=== PATIENT | male | born 1945 | race Caucasian/White ===

== ENCOUNTER 2016-06-25 15:21 | Emergency (ER) | payer OTHER, MEDICARE ==
[~2016-06-25] VITALS: Ht 172.7 cm; Wt 73.2 kg
[~2016-06-25 15:21] MED LIST: NXMUNK
[2016-06-25 15:40] VITALS: TEMP 36.7; Ht 172.7 cm; Wt 73.2 kg
[2016-06-25] MEDS ORDERED: ESOM20CA PO (15:52)
[2016-06-25] MEDS ORDERED: XYLOCAINE 1%/SOD BICARB 20 ML VIAL INFIL ONE (16:00)
[2016-06-25] MEDS ORDERED: DIPHTHERIA/TETANUS/PERTUSSIS 0.5 ML SYR/VIAL IM. ONE (16:15)
[2016-06-25 16:46] VITALS: BP 130/80; PULSE 74; O2SAT 95
--- NOTE | 2016-06-25 17:06 | EMERGENCY ROOM VISIT NOTE ---
ED Visit Note First contact with patient: 15:52 Chief Complaint: I cut my left middle finger within the life when I was cutting a role. History of Present Illness: Mr. Barrett is a 70-year-old white male who ambulates into the ED complaining of a left middle finger laceration. Patient reports less than an hour before he arrived in the ED he was cutting roll with a sharp knife and accidentally cut his finger. He attempted to control bleeding prior to arrival at the hospital but did not wash his wound. Associated with his laceration he has a stinging sensation in the area of the wound. He rates his discomfort 2/10. His pain is nonradiating. His pain worsens with palpation. He has not identified any alleviating factors related to the pain. He has not taken a medication for pain prior to arrival at the hospital. He denies any associated other hand pain, middle finger weakness/ numbness/tingling. Review of Systems: As noted above in history of present illness. Past Medical History: Status post carotid surgery. Current Medications: Nexium. Allergies to Medications: Patient denies. Social History: Patient is currently employed; he feels safe in his home environment; he denies tobacco use; he admits to social alcohol use. Tetanus Immunization Status: Patient reports greater than 10 years. Physical Examination: Vital Signs: Date Time Temp Pulse Resp B/P Pulse Ox O2 Delivery O2 Flow Rate FiO2 06/25/16 15:40 36.7 79 18 136/77 95 Room Air GENERAL: 70-year-old male in mild distress due to pain, nontoxic-appearing, afebrile and hemodynamically stable. NEUROLOGICAL: Awake, alert and oriented to person, place and time. Answering questions appropriately and following commands. Normal gait. Good hand eye coordination. No focal motor sensory deficits. SKIN: Warm, dry and pink. LEFT MIDDLE FINGER: Over the lateral aspect of the finger over the middle phalange patient has a 3.2 cm full-thickness laceration. There is no gross bony deformity. Patient has full range of motion in flexion and extension of the MCP, DIP and PIP joint. He was able to distinguish light sensations through all dermatomes of the finger. Throughout the finger the skin was warm and pink and capillary refill is brisk. ED Course: Patient is assessed as noted above. Wound Repair: Complexity: Basic Verbal consent was obtained after the risks and benefits were explained. The skin was prepped with betadine and a sterile field set. Wound edges of the wound was anesthetized with 1.4 ml buffered 1% lidocaine. The wound was explored for foreign bodies and none found. Copious irrigation was performed using sterile saline. With direct pressure the bleeding subsided. Debridement was not performed. The wound edges were approximated using 5-0 Ethilon with 5 simple interrupted sutures. Hemostasis and excellent approximation was achieved. Antibacterial ointment and a sterile dressing applied. No complications and the patient tolerated the procedure well. Patient was educated about tonight's findings and instructed on his treatment plan; he verbalizes understanding and agreement with this plan. Clinical Impression: Laceration of the left middle finger. Disposition: Patient discharged home in stable condition; prior to departure he was reassessed and subjectively reported he was pain-free. Plan: Comfort measures, wound care, and signs of infection were discussed with the patient. Patient was encouraged to follow-up with PCP or return to the ED for signs of infection and/or suture removal in 10-12 days.
[2016-12-06] MEDS ORDERED: ALPR0.5T PO (13:11)
[2016-12-06] MEDS ORDERED: MULT-506 PO (13:11)
== END 2016-06-25 16:54 | disposition home or self-care (01) ==
LOC: C.EDB 15:24 → C.EDD 16:54
DX: S61.213A Laceration without foreign body of left middle finger without damage to nail, initial encounter (principal); W26.0XXA Contact with knife, initial encounter; Y93.89 Activity, other specified; Y99.8 Other external cause status; Z23 Encounter for immunization

== ENCOUNTER 2016-07-06 12:49 | Emergency (ER) | payer OTHER, MEDICARE ==
[~2016-07-06] VITALS: Ht 175.3 cm; Wt 70.1 kg
[~2016-07-06 12:49] MED LIST changes: +ESOM20CA PO; -NXMUNK
[2016-07-06 12:55] VITALS: BP 114/76; TEMP 36.6; O2SAT 99; Ht 175.3 cm; Wt 70.1 kg
--- NOTE | 2016-07-06 13:06 | EMERGENCY ROOM VISIT NOTE ---
ED Visit Note First contact with patient: 13:04 CHIEF COMPLAINT: Suture removal HISTORY OF PRESENT ILLNESS: This 70-year-old male patient returns to the ED today for removal of sutures that were placed 11 days ago. There has been no swelling, redness, or drainage from the wound. The patient feels like the laceration is healing well. REVIEW OF SYSTEMS: A 6 system review of systems was completed with positives and pertinent negatives listed in the HPI. PMH: Unchanged from previous visit. ALLERGIES: No known drug allergies PHYSICAL EXAM: Vital Signs: Reviewed Nurse's notes, vital signs stable. GENERAL : This is a 70-year-old male, in no acute distress. SKIN: There is a sutured wound on the finger with no signs of infection. There is no erythema, swelling , or tenderness. EMERGENCY DEPARTMENT COURSE: 5 sutures were removed without any difficulty and there was no separation of the wound edges. The patient was discharged home in good condition. DIAGNOSIS: Healing laceration and suture removal DISCHARGE INSTRUCTIONS AND TREATMENT: Wash any remaining crusts off of the wound today and resume your normal activities. Current/Historical Medications Scheduled Esomeprazole Magnesium (Nexium), 20 MG PO QAM Allergies Coded Allergies: No Known Allergies (Unverified , NONE, 07/06/16) Vital Signs Date Time Temp Pulse Resp B/P Pulse Ox O2 Delivery O2 Flow Rate FiO2 07/06/16 12:55 36.6 18 114/76 99 Room Air Departure Information Impression Primary Impression: Encounter for removal of sutures Dispostion Home / Self-Care Condition GOOD Referrals Homero Iglesias MD (PCP) Patient Instructions Counts Include [facility] B[facility] At [facility] Additional Instructions Wash any remaining crusts off of the wound today and resume your normal activities.
[2016-12-06] MEDS ORDERED: ALPR0.5T PO (13:11)
[2016-12-06] MEDS ORDERED: MULT-506 PO (13:11)
== END 2016-07-06 13:20 | disposition home or self-care (01) ==
LOC: C.EDB 12:50 → C.EDD 13:20
DX: Z48.00 Encounter for change or removal of nonsurgical wound dressing (principal)

== ENCOUNTER → 2016-12-19 | Day surgery (SDC) | payer OTHER, MEDICARE ==
[2016-12-06 13:11] VITALS: Ht 175.3 cm; Wt 70.5 kg
[~2016-12-19] VITALS: Ht 175.3 cm; Wt 70.5 kg
[~2016-12-19] MED LIST changes: +500ML BSS 0.3ML EPI 1:1000PF IRRIG ONE; +ACETAMINOPHEN 325 MG TAB PO PRN; +ALPR0.5T PO; +AMVISC PLUS 0.8ML SYRINGE INT OCU ONE; +ATROPINE SULFATE 0.1 MG/ML 5ML SYR IV PRN; +AcetaZOLAMIDE 250 MG TAB PO SCH; +BETAXOLOL HCL 0.25% OP SUSP PER DROP CHARGE OPL SCH; +BRIMONIDINE TART 0.2% OP SOLN PER DROP CHARGE ONE; +BSS FLUSH ONE; +ENDOCOAT 0.85ML SYRINGE INT OCU ONE; +EpHEDrine SULFATE INJ 50 MG/ML AMP IV PRN; +EpINEphrine INJ 1MG/ML AMP 1 MG/ML AMP ONE; +LACTATED RINGER'S 1000ML 500 ML IV SCH; +LIDOCAINE 4% OP SOLN DROP CHARGE ONE; +LIDOCAINE 4% OP SOLN DROP CHARGE OPL SCH; +LIDOCAINE HCL 1% MPF 2 ML VIAL ONE; +MIDAZOLAM HCL 1 MG/ML 2ML VIAL ONE; +MIX: 4ML BSS 1ML EPI 1:1000 PF INSTIL ONE; +MOXIFLOXACIN OPH SOLN PER DROP CHARGE ONE; +MULT-506 PO; +OCUCOAT 1 ML SOLN IO ONE; +POVIDONE-IODINE OP SOLN 30 ML BTL ONE; +PROPARACAINE 0.5% OP SOLN PER DROP CHARGE OPL SCH; +TOBRAMYCIN/DEXAMETHASONE OPH OINT PER APPLN CHARGE ONE
--- NOTE | 2016-12-19 07:37 | History & Physical Bridge - [place] ---
H&P Re-Evaluation Bridge Note: I have examined the patient, reviewed the History & Physical and in the interval since the performance of the History & Physical I have noted the following changes of clinical significance: No changes noted
[2016-12-19] MEDS: PHENYLEPHRINE HCL 2.5% OP SOLN PER DROP CHARGE OPL SCH ×2 (08:44→08:49)
[2016-12-19] MEDS: TROPICAMIDE 1% OP SOLN PER DROP CHARGE OPL SCH ×2 (08:45→08:50)
[2016-12-19] MEDS: CYCLOPENTOLATE HCL 1% OP SOLN PER DROP CHARGE OPL SCH ×2 (08:46→08:51)
[2016-12-19] MEDS: MOXIFLOXACIN OPH SOLN PER DROP CHARGE OPL SCH ×2 (08:47→08:57)
--- NOTE | 2016-12-19 09:49 | Discharge Instructions-SurgCtr ---
Discharge Instructions Date of Service Dec 19, 2016. Visit Reason for Visit: Cataract Left Eye Discharge Discharge Diagnosis / Problem: lens implant left eye Discharge Goals Goal(s): Improve function Activity Recommendations Activity Limitations: resume your previous activity Lifting Limitations: no more than 10 pounds Exercise/Sports Limitations: gradually increase as tolerated May Resume Sexual Activity: when tolerated Shower/Bathe: tomorrow Driving or Machine Use: resume 1 day after discharge Anesthesia . Post Anesthesia Instructions: If you have had General Anesthesia or IV Sedation: * Do not drive today. * Resume driving when surgeon permits. * Do not make important decisions or sign legal documents today. * Call surgeon for: 1. Temperature elevations greater than 101 degrees F. 2. Uncontrollable pain. 3. Excessive bleeding. 4. Persistent nausea and vomiting. 5. Medication intolerance (nausea, vomiting or rash). * For nausea and vomiting use only clear liquids such as: tea, soda, bouillon until nausea subsides, then gradually increase diet as tolerated. * If you have any concerns or questions, call your surgeon's office. If physician is unavailable and it is an emergency, call 911 or go to the nearest emergency room. . Instructions / Follow-Up Instructions / Follow-Up ACTIVITY RECOMMENDATIONS: * Light activities. * Mild irritation and blurred vision are common for the first few days. * You may walk outside, read, watch television. * Redness around the white part of the eye is common. MEDICATIONS: Resume previous medications unless instructed otherwise by your surgeon. * Take white Diamox (Acetazolamide) tablet at 1 pm today. Start all eye drops at 1 pm today: * Eye drops (today and tomorrow): Durezol - one drop in operative eye every 3 hours while awake Ofloxacin - one drop in operative eye every 3 hours while awake SPECIAL CARE INSTRUCTIONS: * Tape plastic shield over eye to sleep at night. Call your doctor at with any concerns or problems. FOLLOW UP VISIT: Follow-up with Dr Stafford at [place] office as scheduled. Diet Recommendations Home Diet: no limitations Procedures Procedures Performed: cataract extraction with lens implant Pending Studies Studies pending at discharge: no Medical Emergencies . Who to Call and When: Medical Emergencies: If at any time you feel your situation is an emergency, please call 911 immediately. . Non-Emergent Contact Non-Emergency issues call your: Tag Writer Call Non-Emergent contact if: your pain is not controlled [phone] . . "Provider Documentation" section prepared by Jean-Pierre Stafford. .
--- NOTE | 2016-12-19 09:50 | [facility] Operative Report ---
Operative Report Date of Service Dec 19, 2016. Operative Report 1. PREOPERATIVE DIAGNOSIS: Senile nuclear cataract, left eye. 2. POSTOPERATIVE DIAGNOSIS: Senile nuclear cataract, left eye. 3. PROCEDURE: Phacoemulsification of left cataract with posterior chamber lens implant, type [employer], model MX60, power +23.5 diopters. ANESTHESIA: Local standby. SURGEON: Dr. Stafford. COMPLICATIONS: None. OPERATING TIME: 10 minutes. 4. OPERATION AND FINDINGS: DESCRIPTION OF PROCEDURE: The left pupil was dilated. The anesthetic was administered using a topical technique. The left eye was prepped and draped. A speculum was placed. A clear corneal incision was formed. The chamber was filled with Amvisc Plus and Endocoat. Epinephrine solution was used. A paracentesis was placed. A capsulorrhexis was performed. The nucleus was hydrodissected. The lens was removed with phacoemulsification. Time was 6.34 seconds. The aspiration unit was used to remove the cortex. The capsule was filled with Amvisc Plus. The lens implant was folded and placed into the capsule. The incision was hydrated. The Amvisc was aspirated. The wound was secure. The chamber was deep. The pupil was round. Brimonidine, TobraDex ointment and Vigamox solution were placed. The speculum was removed. The patient was returned to the Recovery Room in stable condition. I attest to the content of the Intraoperative Record and any orders documented therein. Any exceptions are noted below. The scribe's documentation has been prepared in my presence, under my direction and personally reviewed by me in its entirety. I confirm that the note above accurately reflects all work, treatment, procedures, and medical decision making performed by me. I personally scribed for Jean-Pierre Stafford M.D. ([email or web address]) on 12/19/16 at 09:50. Electronically submitted by Zahraa Bhatia ([email or web address]).
[2016-12-19 09:54] VITALS: TEMP 36.7
--- NOTE | 2016-12-19 10:04 | Anesthesia Progress Nt - [facility] ---
Anesthesia Post Op Note Date & Time Dec 19, 2016 at 10:04 Vital Signs Pain Intensity: 0 Vital Signs Past 12 Hours Date Time Temp Pulse Resp B/P (MAP) Pulse Ox O2 Delivery O2 Flow Rate FiO2 12/19/16 09:54 36.7 64 16 138/83 (101) 96 Room Air 12/19/16 08:35 36.6 64 16 129/84 (99) 100 Room Air Notes Mental Status: alert / awake / arousable, participated in evaluation Pt Amnestic to Procedure: Yes Nausea / Vomiting: adequately controlled Pain: adequately controlled Airway Patency, RR, SpO2: stable & adequate BP & HR: stable & adequate Hydration State: stable & adequate Anesthetic Complications: no major complications apparent
[2016-12-19 10:15] VITALS: BP 128/80; PULSE 57; O2SAT 98
== END | disposition home or self-care (01) ==
LOC: X.SURG 08:17
PROVIDERS: ATTEND Specialist
DX: H25.12 Age-related nuclear cataract, left eye (principal); Z98.41 Cataract extraction status, right eye; Z85.828 Personal history of other malignant neoplasm of skin; Z68.23 Body mass index [BMI] 23.0-23.9, adult